=== PATIENT | female | born 1990 | race Caucasian/White ===

== ENCOUNTER 2023-06-28 17:50 | Emergency (ER) | payer BC, SELFPAY ==
[2023-06-28 17:57] VITALS: BP 119/81
[2023-06-28 18:20] LABS: % Basophils 0.5 % (0-2); % Eosinophils 3.7 % (0-6); % Immature Granulocytes 1.1 % (0-0.5); % Lymphocytes 25.2 % (20.5-51.1); % Monocytes 7.7 % (1.7-9.3); % Neutrophils 61.8 % (42.2-75.2); Absolute Basophils 0.1 10^3/uL (0-0.2); Absolute Eosinophils 0.4 10^3/uL (0-0.7); Absolute Immature Granulocytes 0.1 10^3/uL (0-0.05); Absolute Lymphocytes 2.8 10^3/uL (1.2-3.4); Absolute Monocytes 0.8 10^3/uL (0.1-0.6); Absolute Neutrophils 6.8 10^3/uL (1.4-6.5); Hemoglobin 13.2 g/dL (12.0-16.0); Mean Corp Hgb Conc. 37.7 g/dL (33.0-37.0); Mean Corpuscular Volume 82.2 fL (81.0-99.0); Mean Platelet Volume 8.9 fL (7.4-10.4); Nucleated Red Blood Cells % 0 %; Platelet Count 417 10^3/uL (130-400); Red Blood Cell Count 4.26 10^6/uL (4.20-5.40); Red Cell Dist. Width 12.2 % (11.5-14.5); White Blood Cell Count 10.9 10^3/uL (4.8-10.8)
[2023-06-28 18:34] LABS: ALT (SGPT) 21 U/L (0-35); AST (SGOT) 24 U/L (14-36); Albumin 4.6 g/dl (3.5-5.0); Alkaline Phosphatase 120 U/L (38-126); Blood Urea Nitrogen 15 mg/dl (7-17); Calcium 9.5 mg/dl (8.4-10.2); Carbon Dioxide 19 mmol/L (22-30); Chloride 106 mmol/L (98-107); Glucose 111 mg/dl (70-99); Sodium 136 mmol/L (135-145); Total Bilirubin 0.5 mg/dl (0.2-1.3); Total Protein 7.9 g/dl (6.3-8.2); eGFR > 60.00
[2023-06-28 18:43] LABS: Troponin I < 0.012 ng/ml
[2023-06-28 19:10] VITALS: BMI 28.6
[2023-06-28 19:27] VITALS: BP 129/84
[2023-06-28 19:36] LABS: D-Dimer 0.46 ug/mlFEU (0.00-0.50)
[2023-06-28 19:38] LABS: PT 12.9 Sec (11.4-14.6)
[2023-06-28 19:39] LABS: INR 0.95
[2023-06-28 20:00] VITALS: BP 120/80
--- NOTE | 2023-06-28 20:26 | ED.GENMED ---
History of Present Illness
General
Chief Complaint: Cardiac Symptoms
Source: patient
Exam Limitations: none
Time Seen by Provider: 06/28/23 19:04
Nursing documentation reviewed up to this point in time: agreed with
Travel History
Have you had any contact with someone who has COVID-19?: No
Do you have any symptoms of coronavirus? Fever > 100 degrees, chills, cough, shortness of breath, sore throat, loss of taste or smell, muscle aches, or headache?: No
History of Present Illness
History of Present Illness:
33-year-old female with past medical history of long QT syndrome status post pacemaker (follows with Dr. Piña for cardiology) who presents to the emergency department for evaluation of chest pain. Patient reports onset of symptoms about 3 to 4
days ago and they have been constant since that time. She says that she has a constant dull pain substernal. She says it is worse with deep inspiration and with lying flat. Somewhat better when she leans forward or sits up. She says that when
she lays back and when she takes a deep breath she feels the pain is more sharp in nature. She denies any associated shortness of breath. She says that she did have COVID 2 weeks ago and has persistent nonproductive cough. No fevers or chills.
She has not had any swelling or pain in her legs. No abdominal pain, nausea, vomiting. She denies similar symptoms in the past.
Past History
Past History
ED Past Medical History: Other (elongated QT)
Review of Systems
Review of Systems
All Other Systems: ROS reviewed and negative except as documented in HPI and ROS
Constitutional: Denies fever or chills
EENT: Denies sore throat or runny nose
Respiratory: Reports cough; Denies trouble breathing
Cardiac: Reports chest pain; Denies diaphoresis, palpitations or syncope
ABD/GI: Denies abdominal pain, nausea, vomiting or diarrhea
: Denies flank pain
Musculoskeletal: Denies neck pain or back pain
Neurological: Denies dizzy, headache, weakness or numbness
Phy Exam
Physical Exam
Physical Exam:
General: Awake, alert, oriented x3; no acute distress
Head: Normocephalic, atraumatic
Eyes: Conjunctiva normal, sclera anicteric
Throat: Airway intact, handling secretions
Neck: Trachea midline, supple without meningismus
Lungs: Clear to auscultation bilaterally, no wheezing, rales, rhonchi
Heart: Regular rate and rhythm, no murmurs, gallops, or rubs appreciated
Abd: Soft, non distended, nontender
Neuro: Cranial nerves grossly intact, speech fluid
Skin: no rash
Extremities: No edema in extremities, warm and well-perfused
Scores
Heart Failure Risk
Heart Failure Risk Score: Not Applicable
Heart Score for Chest Pain Patients
STEMI patient?: No
History: Slightly or Non-Suspicious
ECG: Nonspecific Repolarization
Age: </= 45 years
Risk Factors: No Risk Factors
Troponin: </= Normal Limit
Heart Score for Chest Pain Patients: 1
Heart Score Risk: 2.5% MACE over next 6 weeks
PE Wells Score
Symptoms of DVT: No
No alternative diagnosis better explains the illness: No
Tachycardia with pulse > 100: No
Immobilization (>=3 days) or surgery within previous 4 weeks: No
Prior history of DVT or pulmonary embolism: No
Presence of hemoptysis: No
Presence of malignancy: No
Pulmonary Embolism Risk Score: 0
Probability of PE: Pt is low risk
Withdrawal Assessment of Alcohol
Withdrawal Assessment Completed?: Not applicable
Course
Orders/Labs/Results
Orders:
Orders
06/28/23 18:00
Electrocardiogram (*1) Urgent
Reason for Study: Chest Pain
EKG- Treatment ONCE
CR Chest - 2 Views Urgent
Comment:
Reason For Exam: chest pain
06/28/23 18:10
Complete Blood Count/With Diff Urgent
Comprehensive Metabolic Panel Urgent
Troponin I Urgent
06/28/23 19:14
D-Dimer Urgent
Prothrombin Time Urgent
06/28/23 20:24
Ketorolac [Toradol] 15 mg IV NOW STA
06/28/23 20:55
Troponin I Urgent
06/28/23 21:35
Electrocardiogram (*1) Urgent
Reason for Study: Chest Pain
EKG- Treatment ONCE
Abnormal Lab Results
06/28/23
18:10
WBC 10.9 H 10^3/uL
(4.8-10.8)
Hct 35.0 L %
(37.0-47.0)
MCHC 37.7 H g/dL
(33.0-37.0)
Plt Count 417 H 10^3/uL
(130-400)
Abs Immat Gran (auto) 0.1 H 10^3/uL
(0-0.05)
Absolute Neuts (auto) 6.8 H 10^3/uL
(1.4-6.5)
Absolute Monos (auto) 0.8 H 10^3/uL
(0.1-0.6)
Immature Gran % 1.1 H %
(0-0.5)
Carbon Dioxide 19 L mmol/L
(22-30)
Glucose 111 H mg/dl
(70-99)
06/28/23 18:10
06/28/23 18:10
Vital Signs
Initial and Last Documented VS:
Initial Vital Signs
Temp Pulse Resp BP Pulse Ox
37.0 C 66 18 119/81 99
06/28/23 17:57 06/28/23 17:57 06/28/23 17:57 06/28/23 17:57 06/28/23 17:57
Last Documented Vital Signs
Temp Pulse Resp BP Pulse Ox
37.0 C 66 18 119/81 99
06/28/23 17:57 06/28/23 17:57 06/28/23 17:57 06/28/23 17:57 06/28/23 17:57
MDM/Problems Addressed
Differential Diagnosis Includes:
Pericarditis, myocarditis, ACS, pulmonary embolism, pneumothorax, pneumonia, costochondritis
MDM/Problems Addressed:
33-year-old female presents to the emergency department for evaluation of chest pain constant for the past 3 to 4 days in the setting of recent viral illness 2 weeks ago. Pain worse with lying flat and worse with deep inspiration. Vital signs here
within normal limits. Physical exam as above. EKG shows no STEMI, anterior lateral T wave abnormalities no prior available for comparison.Plan placed IV check labs including CBC and CMP, coags, D-dimer. Will check serial troponins. Will check
chest x-ray. Will treat with Toradol. Her clinical history certainly seems consistent with pericarditis. Monitor closely reassess after the above.
Labs reviewed: CBC shows no clinically significant abnormalities, CMP shows no significant abnormalities. Troponin negative x 1 repeat pending. D-dimer negative. Chest x-ray reviewed and apparently by me shows no pneumonia, no pneumothorax no
other acute pathology. Continue to monitor.
Repeat troponin negative. No changes on serial EKG. Patient remains well-appearing with stable vital signs. Clinically picture seems most consistent with pericarditis. Will treat with NSAIDs and colchicine. Patient is known to Dr. Piña for
cardiology will have her follow-up as an outpatient. She feels comfortable with this plan. Spoke about return precautions and all questions answered.
*Radiology
Radiology exam reviewed: preliminary read by ED provider and radiology read reviewed
*Pulse Oximetry
Patient hypoxic: no
*EKG
Interpreted by ED Provider?: Yes
Comparison EKG: no comparison EKG present
Heart Rate: 67
Rate: normal
Rhythm: sinus
[place]: normal axis
Interval: normal interval
QRS Pattern: normal QRS
Ischemia: T-wave inversion
*Critical Care Note
Total Time (30-74mins, 75-104mins- exclusive of procedures): Not Applicable
Data Reviewed
Source: patient
Patient Management
Social determinants of health affecting care: Strong social support
ED Attending Note
-
Portions of this chart may have been created with voice recognition software.� Occasional wrong word or��sound alike� substitutions may have occurred due to the inherent limitations of voice recognition software.
Discharge Plan
Departure
Patient Disposition: Home (Routine Discharge)
Date of Disposition: 06/28/23
Time of Disposition: 21:34
Patient with high blood pressure during this ER visit?: No
Discharge Problem:
Chest pain
Instructions: Chest Pain CBC Follow Up, Pericarditis
Prescriptions:
New
ibuprofen 600 mg tablet
600 mg PO Q8H PRN (Reason: Pain) Qty: 30 0RF
colchicine 0.6 mg tablet
0.6 mg PO BID Qty: 30 0RF
No Action
Vitamin Tablet
1 tab PO DAILY
Zoloft
50 mg PO DAILY
acetaminophen 325 MG tablet
650 mg PO Q4HPRN PRN (Reason: mild pain) 0RF
oxycodone-acetaminophen 5 MG/325 MG tablet
1 tab PO Q4HPRN PRN (Reason: moderate pain) Qty: 12 0RF
propranolol 120 MG capsule,extended release 24 hr
120 mg PO DAILY Qty: 30 0RF
ibuprofen 600 MG tablet
600 mg PO Q4HPRN PRN (Reason: cramps) 0RF
Referrals:
Ric Gonzalez DO [Family Provider] - Call in 1-3 days for appt
Oc Piña MD [Active] - Call in 1-3 days for appt
Activity Restrictions/Additional Instructions:
Thank you for visiting the Emergency Department at [facility].
1. Please schedule a follow up appointment as directed. Call first thing tomorrow morning to make an appointment.
2. If indicated, please take your medications as instructed and indicated on discharge paperwork.
3. If any of your symptoms do not improve, or persist, or become more severe within 6-12 hours, please return to the emergency department for further care.
4. Please return to the emergency department if you develop a headache, neck pain/stiffness, fever greater than 100.4F, chest pain, shortness of breath, persistent nausea, vomiting, slurred speech, difficulty walking, numbness/tingling, weakness,
signs of infection or any other symptoms that are worrisome to you.
Please call [phone] if you have any questions.
Interventions
Interventions:
*Risk Screen - Suicide Last Done: 06/28/23 17:57
*General Assessment Last Done: 06/28/23 17:57
*Neglect/Abuse Screening Last Done: 06/28/23 17:57
ED- Fall Risk Assessment Last Done: 06/28/23 19:10
*ED COVID-19 Vaccine History Last Done: 06/28/23 19:10
ED- Cardiac Assessment Last Done: 06/28/23 19:10
ED- Pulmonary Assessment Last Done: 06/28/23 19:10
[2023-06-28 21:00] VITALS: BP 123/89
[2023-06-28] MEDS: TORADOL 15 MG IV (21:02)
[2023-06-28 21:24] LABS: Troponin I < 0.012 ng/ml
== END 2023-06-28 22:22 | disposition home or self-care (01) ==
LOC: EMR 17:50
PROVIDERS: Emergency Medicine; EMERGENCY PHYSICIAN Emergency Medicine; FAMILY PHYSICIAN Family Medicine
DX: R07.89 Other chest pain (principal); I45.81 Long QT syndrome; Z95.0 Presence of cardiac pacemaker
CPT/HCPCS: 99283; 71046; 80053; 84484; 85025; 85379; 85610; 93005